=== PATIENT | female | born 1945 | race Caucasian/White ===

== ENCOUNTER 2019-11-30 16:17 | Inpatient (IN) ==
[2019-11-30 17:09] LABS: Basophils % 0.7 %; Eosinophils # 0.2 K/mcL (0.0-0.6); Eosinophils % 2.5 %; Hemoglobin 9.1 g/dL (11.5-15.4); Immature Granulocytes % 0.3 % (0-4); Lymphocytes # 1.3 K/mcL (0.6-4.6); Mean Corpuscular HGB Conc 31.4 g/dL (31.6-35.5); Mean Corpuscular Hemoglobin 29.8 pg (28.0-33.3); Mean Corpuscular Volume 95.1 fL (83.0-100.0); Mean Platelet Volume 10.6 fL (9.4-12.4); Monocytes # 0.4 K/mcL (0.0-1.3); Monocytes % 7.1 %; Platelet Count 222 K/mcL (140-400); Red Blood Count 3.05 M/mcL (3.82-4.97); Red Cell Distribution Width 13.6 % (11.5-14.5); Segmented Neutrophils % 67.4 %; White Blood Count 5.9 K/mcL (4.3-11.1)
[2019-11-30 17:36] LABS: BUN/Creatinine Ratio 14 (6-26); Blood Urea Nitrogen 12 mg/dL (8-23); Calcium 9.5 mg/dL (8.6-10.3); Carbon Dioxide 27 mEq/L (23-29); Chloride 102 mEq/L (98-107); Glucose 88 mg/dL (70-105); Osmolality,Calculated 287 (280-300); Potassium 4.3 mEq/L (3.5-5.1); Sodium 139 mEq/L (136-145); Troponin I < 0.03 ng/mL (< 0.04); eGFR For African Americans > 60 (> 60); eGFR For Non-African Americans > 60 (> 60)
[2019-11-30] MEDS ORDERED: Furosemide 40 MG/4 ML VIAL IVP ONE (18:07)
[2019-11-30] MEDS ORDERED: Naloxone 0.4 MG/ML INJ IVP PRN (23:27)
[2019-11-30] MEDS ORDERED: Ondansetron ODT 4 MG TAB.RAPDIS PO PRN (23:29)
[2019-11-30] MEDS ORDERED: Albuterol 2.5 MG/3 ML NEBULIZER IH PRN (23:32)
[2019-12-01] MEDS: rOPINIRole 1 MG TABLET PO SCH ×2 (00:31→20:51)
[2019-12-01] MEDS: tiZANidine 4 MG TABLET PO PRN ×2 (00:36→22:59)
[2019-12-01] MEDS: Ipratropium/Albuterol Neb 3 ML IH SCH ×4 (03:36→21:46)
[2019-12-01] MEDS: Acetaminophen 325 MG TABLET PO PRN (06:07)
[2019-12-01 06:31] LABS: Hematocrit 29.3 % (35.3-44.9); Hemoglobin 9.1 g/dL (11.5-15.4); Mean Corpuscular HGB Conc 31.1 g/dL (31.6-35.5); Mean Corpuscular Hemoglobin 29.6 pg (28.0-33.3); Mean Corpuscular Volume 95.4 fL (83.0-100.0); Mean Platelet Volume 10.6 fL (9.4-12.4); Platelet Count 229 K/mcL (140-400); Red Blood Count 3.07 M/mcL (3.82-4.97); Red Cell Distribution Width 13.7 % (11.5-14.5); White Blood Count 4.6 K/mcL (4.3-11.1)
[2019-12-01 06:52] LABS: BUN/Creatinine Ratio 14 (6-26); Blood Urea Nitrogen 13 mg/dL (8-23); Carbon Dioxide 30 mEq/L (23-29); Chloride 101 mEq/L (98-107); Glucose 89 mg/dL (70-105); Osmolality,Calculated 294 (280-300); Potassium 3.6 mEq/L (3.5-5.1); Sodium 142 mEq/L (136-145); eGFR For African Americans > 60 (> 60); eGFR For Non-African Americans > 60 (> 60)
[2019-12-01] MEDS ORDERED: Furosemide 40 MG/4 ML VIAL IVP SCH (09:00)
[2019-12-01] MEDS: Budesonide/Formoterol 80/4.5 1 PUFF INH IH SCH ×2 (09:47→21:46)
[2019-12-01] MEDS: predniSONE 20 MG TABLET PO SCH (09:50)
[2019-12-01] MEDS: Gabapentin 300 MG CAPSULE PO SCH ×3 (09:50→20:53)
[2019-12-01] MEDS: Aspirin Enteric Coated 81 MG Tablet PO SCH (09:50)
[2019-12-01] MEDS ORDERED: Perflutren Lipid Microsphere 1.3 ML in 0.9 % Sodium Chloride 8.7 ML IVP ONE (15:11)
[2019-12-02] MEDS: ALPRAZolam 0.5 MG TABLET PO PRN ×2 (01:08→20:47)
[2019-12-02] MEDS: Ipratropium/Albuterol Neb 3 ML IH SCH ×4 (03:38→23:28)
[2019-12-02 06:51] LABS: Hemoglobin 8.9 g/dL (11.5-15.4); Mean Corpuscular HGB Conc 31.8 g/dL (31.6-35.5); Mean Corpuscular Hemoglobin 29.6 pg (28.0-33.3); Mean Platelet Volume 11.4 fL (9.4-12.4); Platelet Count 226 K/mcL (140-400); Red Blood Count 3.01 M/mcL (3.82-4.97); Red Cell Distribution Width 13.7 % (11.5-14.5); White Blood Count 7.4 K/mcL (4.3-11.1)
[2019-12-02 07:14] LABS: BUN/Creatinine Ratio 19 (6-26); Blood Urea Nitrogen 17 mg/dL (8-23); Calcium 9.1 mg/dL (8.6-10.3); Carbon Dioxide 27 mEq/L (23-29); Chloride 101 mEq/L (98-107); Glucose 107 mg/dL (70-105); Osmolality,Calculated 294 (280-300); Potassium 3.7 mEq/L (3.5-5.1); Sodium 141 mEq/L (136-145); eGFR For African Americans > 60 (> 60); eGFR For Non-African Americans > 60 (> 60)
[2019-12-02 08:09] LABS: Immature Reticulocyte % 29.7 % (11.0-38.0); Retculocyte # 0.08 M/mcL (0.05-0.10); Reticulocyte % 2.6 % (1.6-2.8)
[2019-12-02 08:21] LABS: % Iron Saturation 6 % (15-50); Iron 30 mcg/dL (50-170); Transferrin 339 mg/dL (203-362)
[2019-12-02] MEDS: Aspirin Enteric Coated 81 MG Tablet PO SCH (08:21)
[2019-12-02] MEDS: Gabapentin 300 MG CAPSULE PO SCH ×3 (08:21→20:47)
[2019-12-02] MEDS: predniSONE 20 MG TABLET PO SCH (08:22)
[2019-12-02 08:40] LABS: Ferritin 10 ng/mL (10-120)
[2019-12-02] MEDS: Furosemide 40 MG/4 ML VIAL IVP SCH ×2 (10:31→18:21)
[2019-12-02] MEDS: Budesonide/Formoterol 80/4.5 1 PUFF INH IH SCH ×2 (10:37→23:28)
[2019-12-02] MEDS: rOPINIRole 1 MG TABLET PO SCH (20:47)
[2019-12-02] MEDS: Nystatin SUSP 5 ML UD.LIQ PO SCH (20:47)
[2019-12-02] MEDS: tiZANidine 4 MG TABLET PO PRN (20:47)
[2019-12-02] MEDS: Acetaminophen 325 MG TABLET PO PRN (23:26)
[2019-12-03] MEDS: Ipratropium/Albuterol Neb 3 ML IH SCH ×4 (03:15→22:58)
[2019-12-03 05:45] LABS: Hematocrit 28.8 % (35.3-44.9); Mean Corpuscular HGB Conc 31.3 g/dL (31.6-35.5); Mean Corpuscular Hemoglobin 29.8 pg (28.0-33.3); Mean Corpuscular Volume 95.4 fL (83.0-100.0); Mean Platelet Volume 10.9 fL (9.4-12.4); Platelet Count 216 K/mcL (140-400); Red Blood Count 3.02 M/mcL (3.82-4.97); Red Cell Distribution Width 13.8 % (11.5-14.5); White Blood Count 8.9 K/mcL (4.3-11.1)
[2019-12-03 06:11] LABS: BUN/Creatinine Ratio 23 (6-26); Blood Urea Nitrogen 23 mg/dL (8-23); Calcium 9.4 mg/dL (8.6-10.3); Carbon Dioxide 29 mEq/L (23-29); Chloride 98 mEq/L (98-107); Glucose 108 mg/dL (70-105); Osmolality,Calculated 296 (280-300); Potassium 4.1 mEq/L (3.5-5.1); Sodium 141 mEq/L (136-145); eGFR For African Americans > 60 (> 60); eGFR For Non-African Americans 54 (> 60)
[2019-12-03] MEDS: Gabapentin 300 MG CAPSULE PO SCH ×3 (08:23→20:51)
[2019-12-03] MEDS: Aspirin Enteric Coated 81 MG Tablet PO SCH (08:23)
[2019-12-03] MEDS: Furosemide 40 MG/4 ML VIAL IVP SCH ×2 (08:23→17:53)
[2019-12-03] MEDS: Nystatin SUSP 5 ML UD.LIQ PO SCH ×4 (08:23→20:53)
[2019-12-03] MEDS: predniSONE 20 MG TABLET PO SCH (08:23)
[2019-12-03] MEDS: Budesonide/Formoterol 80/4.5 1 PUFF INH IH SCH ×2 (11:39→22:58)
[2019-12-03] MEDS: ALPRAZolam 0.5 MG TABLET PO PRN (20:51)
[2019-12-03] MEDS: tiZANidine 4 MG TABLET PO PRN (20:59)
[2019-12-03] MEDS ORDERED: rOPINIRole 1 MG TABLET PO SCH (21:00)
[2019-12-04] MEDS: Ipratropium/Albuterol Neb 3 ML IH SCH ×2 (03:59→09:49)
[2019-12-04 06:33] VITALS: BP 117/73
[2019-12-04 07:03] LABS: Hematocrit 30.2 % (35.3-44.9); Hemoglobin 9.6 g/dL (11.5-15.4); Mean Corpuscular HGB Conc 31.8 g/dL (31.6-35.5); Mean Corpuscular Hemoglobin 29.3 pg (28.0-33.3); Mean Corpuscular Volume 92.1 fL (83.0-100.0); Mean Platelet Volume 10.4 fL (9.4-12.4); Platelet Count 227 K/mcL (140-400); Red Blood Count 3.28 M/mcL (3.82-4.97); Red Cell Distribution Width 13.8 % (11.5-14.5); White Blood Count 8.4 K/mcL (4.3-11.1)
[2019-12-04 07:23] LABS: BUN/Creatinine Ratio 29 (6-26); Blood Urea Nitrogen 28 mg/dL (8-23); Calcium 9.5 mg/dL (8.6-10.3); Carbon Dioxide 34 mEq/L (23-29); Chloride 97 mEq/L (98-107); Glucose 91 mg/dL (70-105); Osmolality,Calculated 291 (280-300); Potassium 3.9 mEq/L (3.5-5.1); Sodium 138 mEq/L (136-145); eGFR For African Americans > 60 (> 60); eGFR For Non-African Americans 56 (> 60)
[2019-12-04] MEDS: Aspirin Enteric Coated 81 MG Tablet PO SCH (08:23)
[2019-12-04] MEDS: Nystatin SUSP 5 ML UD.LIQ PO SCH (08:24)
[2019-12-04] MEDS: Gabapentin 300 MG CAPSULE PO SCH (08:24)
[2019-12-04] MEDS: predniSONE 20 MG TABLET PO SCH (08:24)
[2019-12-04] MEDS: Furosemide 40 MG/4 ML VIAL IVP SCH (08:24)
[2019-12-04] MEDS: Budesonide/Formoterol 80/4.5 1 PUFF INH IH SCH (09:51)
== END 2019-12-04 15:36 | disposition home or self-care (01) | DRG 292 ==
LOC: 3BNU 16:17 → EMEROOARM 16:17 → 3BNU 20:53
PROVIDERS: ADMIT Family Medicine; ATTEND Family Medicine

== ENCOUNTER 2020-02-07 05:01 | Inpatient (IN) ==
[2020-02-07 06:20] LABS: Basophils % 0.7 %; Eosinophils # 0.2 K/mcL (0.0-0.6); Eosinophils % 3.1 %; Hematocrit 38.1 % (35.3-44.9); Hemoglobin 12.5 g/dL (11.5-15.4); Immature Granulocytes % 0.2 % (0-4); Lymphocytes # 1.3 K/mcL (0.6-4.6); Lymphocytes % 23.6 %; Mean Corpuscular HGB Conc 32.8 g/dL (31.6-35.5); Mean Corpuscular Volume 94.5 fL (83.0-100.0); Mean Platelet Volume 10.3 fL (9.4-12.4); Monocytes # 0.7 K/mcL (0.0-1.3); Monocytes % 11.8 %; Neutrophils # 3.3 K/mcL (1.6-8.9); Platelet Count 212 K/mcL (140-400); Red Blood Count 4.03 M/mcL (3.82-4.97); Segmented Neutrophils % 60.6 %; White Blood Count 5.5 K/mcL (4.3-11.1)
[2020-02-07 06:37] LABS: Calcium 9.7 mg/dL (8.6-10.3); Potassium 3.9 mEq/L (3.5-5.1)
[2020-02-07] MEDS ORDERED: Vancomycin (wt based) 1,000 MG VIAL IVPB SCH (07:00)
[2020-02-07] MEDS ORDERED: Ondansetron 4 MG/2 ML VIAL IVP PRN (07:27)
[2020-02-07] MEDS ORDERED: Naloxone 0.4 MG/ML INJ IVP PRN (07:27)
[2020-02-07] MEDS ORDERED: SUMAtriptan succinate 25 MG TABLET PO PRN (07:32)
[2020-02-07] MEDS ORDERED: Ipratropium/Albuterol Neb 3 ML IH PRN (07:33)
[2020-02-07] MEDS ORDERED: cefTRIAXone 2,000 MG in Water for inj. (sterile) 10 ML IVP SCH (09:00)
[2020-02-07] MEDS: Aspirin Enteric Coated 81 MG Tablet PO SCH (09:57)
[2020-02-07] MEDS: Furosemide 20 MG TABLET PO SCH ×2 (09:57→17:07)
[2020-02-07] MEDS: Gabapentin 300 MG CAPSULE PO SCH ×3 (09:58→20:06)
[2020-02-07] MEDS: atenoloL 50 MG TABLET PO SCH (09:58)
[2020-02-07] MEDS: *HR* Heparin 5,000 UNIT/ML VIAL SQ SCH ×2 (14:00→20:05)
[2020-02-07] MEDS: *HR* HYDROcodone/Acet 5/325 mg TABLET PO PRN (18:32)
[2020-02-07] MEDS: rOPINIRole 1 MG TABLET PO SCH (20:06)
[2020-02-07] MEDS: tiZANidine 4 MG TABLET PO SCH (20:06)
[2020-02-08 05:29] LABS: Basophils # 0.1 K/mcL (0.0-0.2); Basophils % 1.6 %; Eosinophils # 0.1 K/mcL (0.0-0.6); Eosinophils % 3.7 %; Hematocrit 36.7 % (35.3-44.9); Immature Granulocytes % 0.3 % (0-4); Lymphocytes # 1.3 K/mcL (0.6-4.6); Lymphocytes % 33.3 %; Mean Corpuscular HGB Conc 32.7 g/dL (31.6-35.5); Mean Corpuscular Hemoglobin 31.5 pg (28.0-33.3); Mean Corpuscular Volume 96.3 fL (83.0-100.0); Mean Platelet Volume 9.9 fL (9.4-12.4); Monocytes # 0.4 K/mcL (0.0-1.3); Monocytes % 10.4 %; Neutrophils # 1.9 K/mcL (1.6-8.9); Platelet Count 190 K/mcL (140-400); Red Blood Count 3.81 M/mcL (3.82-4.97); Red Cell Distribution Width 15.2 % (11.5-14.5); Segmented Neutrophils % 50.7 %; White Blood Count 3.8 K/mcL (4.3-11.1)
[2020-02-08 05:50] LABS: BUN/Creatinine Ratio 18 (6-26); Blood Urea Nitrogen 18 mg/dL (8-23); Calcium 9.1 mg/dL (8.6-10.3); Carbon Dioxide 27 mEq/L (23-29); Chloride 105 mEq/L (98-107); Glucose 98 mg/dL (70-105); Osmolality,Calculated 286 (280-300); Potassium 3.8 mEq/L (3.5-5.1); Sodium 137 mEq/L (136-145); eGFR For African Americans > 60 (> 60); eGFR For Non-African Americans 54 (> 60)
[2020-02-08] MEDS: *HR* Heparin 5,000 UNIT/ML VIAL SQ SCH ×3 (06:12→21:26)
[2020-02-08 07:03] LABS: Platelet Estimate Normal (Normal)
[2020-02-08] MEDS: Aspirin Enteric Coated 81 MG Tablet PO SCH (08:09)
[2020-02-08] MEDS: Gabapentin 300 MG CAPSULE PO SCH ×3 (08:09→21:20)
[2020-02-08] MEDS: Furosemide 20 MG TABLET PO SCH ×2 (08:10→16:52)
[2020-02-08] MEDS: atenoloL 50 MG TABLET PO SCH (08:10)
[2020-02-08] MEDS ORDERED: ALPRAZolam 0.5 MG TABLET PO PRN (10:01)
[2020-02-08] MEDS: Piperacillin/Tazobactam 3.375 GM in 0.9 % Sodium Chloride Mini Bag 100 ML IVPB SCH ×3 (11:22→23:29)
[2020-02-08] MEDS: Ipratropium/Albuterol Neb 3 ML IH SCH ×3 (11:53→22:51)
[2020-02-08] MEDS: tiZANidine 4 MG TABLET PO SCH (20:29)
[2020-02-08] MEDS: rOPINIRole 1 MG TABLET PO SCH (20:29)
[2020-02-08] MEDS ORDERED: ROPINIROLE HCL 12 MG PO SCH (21:00)
[2020-02-09] MEDS: Ipratropium/Albuterol Neb 3 ML IH SCH ×4 (03:14→21:49)
[2020-02-09 04:40] LABS: Basophils # 0.1 K/mcL (0.0-0.2); Basophils % 0.9 %; Eosinophils # 0.1 K/mcL (0.0-0.6); Eosinophils % 1.9 %; Hematocrit 34.9 % (35.3-44.9); Immature Granulocytes % 0.4 % (0-4); Lymphocytes # 1.7 K/mcL (0.6-4.6); Lymphocytes % 31.8 %; Mean Corpuscular HGB Conc 31.5 g/dL (31.6-35.5); Mean Corpuscular Hemoglobin 30.5 pg (28.0-33.3); Mean Corpuscular Volume 96.7 fL (83.0-100.0); Mean Platelet Volume 10.6 fL (9.4-12.4); Monocytes # 0.5 K/mcL (0.0-1.3); Monocytes % 8.7 %; Platelet Count 198 K/mcL (140-400); Red Blood Count 3.61 M/mcL (3.82-4.97); Red Cell Distribution Width 15.2 % (11.5-14.5); Segmented Neutrophils % 56.3 %; White Blood Count 5.4 K/mcL (4.3-11.1)
[2020-02-09 04:56] LABS: Calcium 8.9 mg/dL (8.6-10.3); Magnesium 2.1 mg/dL (1.6-2.6); Phosphorous 3.6 mg/dL (2.7-4.5); Potassium 3.9 mEq/L (3.5-5.1)
[2020-02-09 05:03] LABS: Platelet Estimate Normal (Normal); Reactive Lymphocytes Present (Not Present)
[2020-02-09] MEDS: *HR* Heparin 5,000 UNIT/ML VIAL SQ SCH ×3 (05:25→23:14)
[2020-02-09] MEDS: *HR* HYDROcodone/Acet 5/325 mg TABLET PO PRN ×2 (05:30→15:01)
[2020-02-09] MEDS ORDERED: NON-FORMULARY MEDICATION 1 EACH EACH (Umeclidinium Brm/Vilanterol Tr [Anoro Ellipta 62.5-2 IH SCH (09:00)
[2020-02-09] MEDS: Furosemide 20 MG TABLET PO SCH (09:03)
[2020-02-09] MEDS: Piperacillin/Tazobactam 3.375 GM in 0.9 % Sodium Chloride Mini Bag 100 ML IVPB SCH ×3 (09:03→23:14)
[2020-02-09] MEDS: Gabapentin 300 MG CAPSULE PO SCH ×3 (09:04→23:16)
[2020-02-09] MEDS: atenoloL 50 MG TABLET PO SCH (09:04)
[2020-02-09] MEDS: Aspirin Enteric Coated 81 MG Tablet PO SCH (09:05)
[2020-02-09] MEDS ORDERED: 0.9 % Sodium Chloride 500 ML IVC SCH (09:30)
[2020-02-09] MEDS ORDERED: Aminoglycoside Consult 1 EACH MC ONE (15:14)
[2020-02-09] MEDS: rOPINIRole 1 MG TABLET PO SCH (23:15)
[2020-02-09] MEDS: tiZANidine 4 MG TABLET PO SCH (23:16)
[2020-02-10 02:34] LABS: Basophils # 0.1 K/mcL (0.0-0.2); Basophils % 1.1 %; Eosinophils # 0.2 K/mcL (0.0-0.6); Eosinophils % 3.4 %; Hematocrit 34.5 % (35.3-44.9); Hemoglobin 10.8 g/dL (11.5-15.4); Immature Granulocytes % 0.2 % (0-4); Lymphocytes # 1.9 K/mcL (0.6-4.6); Lymphocytes % 35.8 %; Mean Corpuscular HGB Conc 31.3 g/dL (31.6-35.5); Mean Corpuscular Hemoglobin 30.8 pg (28.0-33.3); Mean Corpuscular Volume 98.3 fL (83.0-100.0); Mean Platelet Volume 10.3 fL (9.4-12.4); Monocytes # 0.4 K/mcL (0.0-1.3); Monocytes % 7.7 %; Neutrophils # 2.7 K/mcL (1.6-8.9); Platelet Count 202 K/mcL (140-400); Red Blood Count 3.51 M/mcL (3.82-4.97); Red Cell Distribution Width 15.5 % (11.5-14.5); Segmented Neutrophils % 51.8 %; White Blood Count 5.2 K/mcL (4.3-11.1)
[2020-02-10 02:49] LABS: Magnesium 2.1 mg/dL (1.6-2.6); Phosphorous 3.7 mg/dL (2.7-4.5); Potassium 4.2 mEq/L (3.5-5.1)
[2020-02-10 02:55] LABS: Platelet Estimate Normal (Normal); Reactive Lymphocytes Present (Not Present)
[2020-02-10] MEDS: Ipratropium/Albuterol Neb 3 ML IH SCH ×2 (03:26→11:04)
[2020-02-10] MEDS: *HR* Heparin 5,000 UNIT/ML VIAL SQ SCH ×2 (05:19→14:57)
[2020-02-10] MEDS: Piperacillin/Tazobactam 3.375 GM in 0.9 % Sodium Chloride Mini Bag 100 ML IVPB SCH (09:29)
[2020-02-10] MEDS: Gabapentin 300 MG CAPSULE PO SCH (09:38)
[2020-02-10] MEDS: Aspirin Enteric Coated 81 MG Tablet PO SCH (09:38)
[2020-02-10] MEDS: atenoloL 50 MG TABLET PO SCH (09:38)
[2020-02-10 09:41] VITALS: BP 114/7
== END 2020-02-10 15:15 | disposition home or self-care (01) | DRG 603 ==
LOC: EMEROOARM 05:01 → 3BNU 05:01 → SUATTDRO 06:57 → 3BNU 08:05
PROVIDERS: ADMIT Internal Medicine; ATTEND Internal Medicine